=== PATIENT | female | born 1940 | race Caucasian/White ===

== ENCOUNTER → 2017-03-10 | Outpatient (CLI) | payer MEDICARE, BC, OTHER ==
[~2017-03-10] MED LIST: BETH10TA PO; CELE200 PO; CITRTAB7 PO; ERGO50000 PO; FERR65TA PO; LANSO30 PO; LIDO5T TOP; LIPI40TA PO; NIAC500 PO; ROPI1TAB72 PO; SENN-29 PO; TAB-TAB PO; TEKT150T PO; TRIL135C PO; VITA10006 PO; VITA100L PO; VITA500T83 PO; [UNRECOGNIZED DRUG - CODE] IV; [UNRECOGNIZED DRUG - CODE] PO
[2017-03-10 09:03] LABS: AUTOMATED NEUTROPHIL # 3.4 TH/MM3 (1.8-7.7); BASOPHIL # 0.1 TH/MM3 (0-0.2); BASOPHIL % 1.2 % (0.0-2.0); EOSINOPHIL # 0.2 TH/MM3 (0-0.4); EOSINOPHIL % 3.4 % (0.0-4.0); HEMATOCRIT 33.1 % (35.0-46.0); MEAN CELL VOLUME 91.2 FL (80.0-100.0); MEAN CORPUSCULAR HEMOGLOBIN 30.3 PG (27.0-34.0); MEAN CORPUSCULAR HGB CONC 33.3 % (32.0-36.0); MEAN PLATELET VOLUME 7.4 FL (7.0-11.0); MONO % 7.5 % (0.0-8.0); MONOCYTE # 0.5 TH/MM3 (0-0.9); NEUT % 55.9 % (16.0-70.0); PLATELET COUNT 384 TH/MM3 (150-450); RED BLOOD COUNT 3.64 MIL/MM3 (4.00-5.30); RED CELL DISTRIBUTION WIDTH 14.2 % (11.6-17.2); WHITE BLOOD COUNT 6.2 TH/MM3 (4.0-11.0)
[2017-03-10 13:04] LABS: ALBUMIN 3.9 GM/DL (3.4-5.0); AST (GOT) 13 U/L (15-37); BICARBONATE 24.3 MEQ/L (21.0-32.0); BLOOD UREA NITROGEN 28 MG/DL (7-18); CALCIUM 8.9 MG/DL (8.5-10.1); CHLORIDE 109 MEQ/L (98-107); GLOMERULAR FILTRATION RATE 36 ML/MIN (>89); GLUCOSE,FASTING 92 MG/DL (74-99); SODIUM (NA) 141 MEQ/L (136-145)
[2017-03-10 13:05] LABS: ALT (GPT) 16 U/L (10-53); CHOLESTEROL 134 MG/DL (120-200)
[2017-03-10 13:15] LABS: ALKALINE PHOSPHATASE 38 U/L (45-117); CHOLESTEROL/ HDL RATIO 2.16 RATIO; HDL CHOLESTEROL 61.9 MG/DL (40.0-60.0); LDL CHOLESTEROL 54 MG/DL (0-99); TOTAL BILIRUBIN ADULT 0.4 MG/DL (0.2-1.0); TOTAL PROTEIN 6.8 GM/DL (6.4-8.2); TRIGLYCERIDES 93 MG/DL (42-150)
== END ==
LOC: OLAB 08:34
PROVIDERS: ATTEND Family Medicine
DX: I10 Essential (primary) hypertension (principal); E78.2 Mixed hyperlipidemia; G47.00 Insomnia, unspecified; D64.9 Anemia, unspecified; N18.9 Chronic kidney disease, unspecified; J44.0 Chronic obstructive pulmonary disease with (acute) lower respiratory infection; K21.0 Gastro-esophageal reflux disease with esophagitis
CPT/HCPCS: 36415; 80053; 80061; 84443; 85025